=== PATIENT | male | born 1975 | race Caucasian/White ===

== ENCOUNTER 2016-09-12 17:03 | Emergency (ER) | payer OTHER ==
[2016-09-12 17:28] VITALS: BP 114/72
[2016-09-12] MEDS ORDERED: Ketorolac 60 MG/2 ML SDV IM ONE (17:38)
--- NOTE | 2016-09-12 17:42 | EDM.PDOC ---
ED HPI GENERAL MEDICAL PROBLEM - General Chief Complaint: General Stated Complaint: FLU SYPMTOMS Time Seen by Provider: 09/12/16 17:31 Source of Information: Reports: Patient, RN notes reviewed History Limitations: Reports: No limitations - History of Present Illness INITIAL COMMENTS - FREE TEXT/NARRATIVE: 40-year-old gentleman presents to the emergency department with a complaint of fevers and cough for the last 3 days, he did receive a flu shot this year denies shortness of breath or chest pain noted GI symptomatologies - Related Data Allergies Allergy/AdvReac Type Severity Reaction Status Date / Time No Known Allergies Allergy Verified 01/01/16 14:49 Home Meds: Home Meds Cholecalciferol (Vitamin D3) [Vitamin D3] 2,000 unit PO DAILY 01/01/16 [History] Sertraline HCl [Sertraline HCl] 09/12/16 [History] Past Medical History Psychiatric History: Reports: ADHD, Anxiety, Depression - Infectious Disease History Infectious Disease History: Reports: Chicken pox Social & Family History - Tobacco Use Smoking Status *Q: Current Every Day Smoker Years of Tobacco use: 20 Packs/Tins Daily: 0.5 Used Tobacco, but Quit: No - Alcohol Use Days Per Week of Alcohol Use: 0 - Recreational Drug Use Recreational Drug Use: No ED ROS GENERAL - Review of Systems Review Of Systems: See Below Constitutional: Reports: fever, chills HEENT: Reports: No symptoms Respiratory: Reports: cough. Denies: shortness of breath Cardiovascular: Reports: No symptoms GI/Abdominal: Reports: No symptoms : Reports: no symptoms ED EXAM, GENERAL - Physical Exam Exam: See Below Free Text/Narrative:: General: male, not in any distress, alert and oriented x3 HEENT: head is atraumatic normocephalic, eyes pupils equal round reactive to light and accommodation sclera clear no conjunctivitis appreciated. Ears tympanic membranes clear and vidal landmarks and light reflex are present bilaterally canals are clear. Nose no septal deviation, nares are clear, no blood present. Mouth mucosa is moist and pink no erythema or exudate noted in soft palate, tongue is midline uvula is midline, dentition is intact. Neck: Supple no thyromegaly no tracheal deviation. Nodes: Cervical nodes subclavicular nodes nontender no palpable lymphadenopathy noted. Lungs: clear to auscultation bilaterally with symmetrical respirations, no adventitious noise appreciated. CV: Regular rate and rhythm S1 and S2 appreciated no murmurs rubs or gallops noted. Abdomen: Soft, nontender, no palpable masses or organomegaly appreciated, no distention no guarding bowel sounds are present, . Course - Vital Signs Last Recorded V/S: Last Vital Signs Temp 99.3 F 09/12/16 17:26 Pulse 83 09/12/16 17:26 Resp 14 09/12/16 17:26 BP 114/72 09/12/16 17:26 Pulse Ox 94 L 09/12/16 17:26 - Orders/Labs/Meds Orders: Active Orders 24 hr Category Date Time Status Ketorolac [Toradol] Med 09/12/16 17:38 Once 60 mg IM ONETIME ONE Medication Orders Ketorolac Tromethamine (Toradol) 60 mg IM ONETIME ONE Stop: 09/12/16 17:39 Meds: Medications Generic Name Dose Route Start Last Admin Trade Name Freq PRN Reason Stop Dose Admin Ketorolac Tromethamine 60 mg 09/12/16 17:38 Toradol IM 09/12/16 17:39 ONETIME ONE Departure - Departure Time of Disposition: 17:41 Disposition: Home, Self-Care 01 Condition: good Clinical Impression: Cough Forms: ED Department Discharge Additional Instructions: continue to use symptomatic treatment as needed Please followup with your primary care provider in 3-5 days if not better, please call return to the emergency department with worsening of symptoms. - My Orders Last 24 Hours: My Active Orders 09/12/16 17:38 Ketorolac [Toradol] 60 mg IM ONETIME ONE - Assessment/Plan Last 24 Hours: My Active Orders 09/12/16 17:38 Ketorolac [Toradol] 60 mg IM ONETIME ONE Plan: Assessment Acuity = acute Site and laterality = cough Etiology = probable flu Manifestations = none Location of injury = home Lab values = none Plan I did discuss with him options including bloodwork and chest x-ray evaluation he is outside the limits Tamiflu he elected to try a dose of Toradol for bodyaches and headache and then continue to treat his symptoms as needed, him follow up with primary care 3-5 days if no improvement Patient was in agreement with the plan all questions were answered, they were instructed to return to the emergency department or call for worsening symptoms. This note was dictated using [employer] voice recognition software please call with any questions.
== END 2016-09-12 17:47 | disposition home or self-care (01) ==
LOC: JP.ED 17:03
DX: R05 Cough (principal); F17.210 Nicotine dependence, cigarettes, uncomplicated; F41.9 Anxiety disorder, unspecified; F32.9 Major depressive disorder, single episode, unspecified
CPT/HCPCS: 96372; 99283; J1885

== ENCOUNTER 2017-02-14 08:22 | Emergency (ER) | payer OTHER ==
[2017-02-14 08:34] VITALS: BP 144/86
[2017-02-14] MEDS ORDERED: Ketorolac 60 MG/2 ML SDV IM ONE (08:48)
--- NOTE | 2017-02-14 08:53 | EDM.PDOC ---
ED HPI GENERAL MEDICAL PROBLEM - General Chief Complaint: Chest Pain Stated Complaint: FELL HIT RIB AREA Time Seen by Provider: 02/14/17 08:48 Source of Information: Reports: Patient, Family, RN Notes Reviewed History Limitations: Reports: No Limitations - History of Present Illness INITIAL COMMENTS - FREE TEXT/NARRATIVE: 41-year-old gentleman presents emergency department day complaint of pain to his left anterior chest area this happened when he slipped and fell and landed on the tongue of his boat trailer Chest Pain Score (Numeric/FACES): 8 - Related Data Allergies Allergy/AdvReac Type Severity Reaction Status Date / Time No Known Allergies Allergy Verified 02/14/17 08:44 Home Meds: Home Meds Cholecalciferol (Vitamin D3) [Vitamin D3] 2,000 unit PO DAILY 01/01/16 [History] Sertraline HCl [Sertraline HCl] 1 tab PO DAILY 09/12/16 [History] Past Medical History Psychiatric History: Reports: ADHD, Anxiety, Depression - Infectious Disease History Infectious Disease History: Reports: Chicken Pox - Past Surgical History HEENT Surgical History: Reports: NEHEMIAS Social & Family History - Tobacco Use Smoking Status *Q: Light Tobacco Smoker Years of Tobacco use: 25 Packs/Tins Daily: 0.5 Used Tobacco, but Quit: No - Alcohol Use Days Per Week of Alcohol Use: 0 - Recreational Drug Use Recreational Drug Use: No ED ROS GENERAL - Review of Systems Review Of Systems: See Below Constitutional: Reports: No Symptoms HEENT: Reports: No Symptoms Respiratory: Reports: Shortness of Breath Cardiovascular: Reports: Chest Pain GI/Abdominal: Reports: No Symptoms : Reports: No Symptoms ED EXAM, UPPER BACK/NECK PAIN - Physical Exam Exam: See Below Exam Limited By: No Limitations General Appearance: Alert, Mild Distress Neck Exam: Non-Tender, Full Range of Motion, Normal Alignment, Normal Inspection Cardiovascular/Respiratory: Regular Rate, Rhythm, No M/R/G, Normal Breath Sounds , No Respiratory Distress, Other (Chest wall tenderness to palpation anterior chest T8 to T12 region) Course - Vital Signs Last Recorded V/S: Last Vital Signs Temp 95.7 F 02/14/17 08:43 Pulse 67 02/14/17 08:43 Resp 16 02/14/17 08:43 BP 144/86 H 02/14/17 08:43 Pulse Ox 99 02/14/17 08:43 - Orders/Labs/Meds Orders: Active Orders 24 hr Category Date Time Status Chest 2V [CR] Urgent Exams 02/14/17 08:51 Taken Meds: Medications Discontinued Medications Generic Name Dose Route Start Last Admin Trade Name Ramos PRN Reason Stop Dose Admin Ketorolac Tromethamine 60 mg 02/14/17 08:48 02/14/17 08:53 Toradol IM 02/14/17 08:49 60 mg ONETIME ONE Administration Departure - Departure Time of Disposition: 09:18 Disposition: Home, Self-Care 01 Condition: Good Clinical Impression: Rib fracture Qualifiers: Encounter type: initial encounter Rib fracture type: single rib Fracture type: closed Laterality: left Qualified Code(s): S22.32XA - Fracture of one rib, left side, initial encounter for closed fracture - Discharge Information Forms: ED Department Discharge Additional Instructions: Continue to use Aleve as needed for baseline pain control, use the hydrocodone as needed for breakthrough pain, Please followup with your primary care provider in 3-5 days if not better, please call return to the emergency department with worsening of symptoms. - My Orders Last 24 Hours: My Active Orders 02/14/17 08:51 Chest 2V [CR] Urgent - Assessment/Plan Last 24 Hours: My Active Orders 02/14/17 08:51 Chest 2V [CR] Urgent Plan: Assessment Acuity = acute Site and laterality = rib fracture left side Etiology = secondary to trauma Manifestations = pain] Location of injury = Home Lab values = x-ray shows rib fracture left side official read radiology is pending Plan Hydrocodone for pain control total #20 follow-up with primary care in 3-5 days if no improvement Patient was in agreement with the plan all questions were answered, they were instructed to return to the emergency department or call for worsening symptoms. This note was dictated using [employer] voice recognition software please call with any questions.
--- NOTE | 2017-02-15 10:00 | CR ---
Chest 2V INDICATION: fall, pain COMPARISON: None FINDINGS: Two views. Heart size normal. Lungs are clear. No infiltrate or pleural effusion. No si gns of pulmonary edema. Minimal rib deformities bilaterally but no acute fractures seen. IMPRESSION: Nothing acute.
== END 2017-02-14 09:35 | disposition home or self-care (01) ==
LOC: JP.ED 08:22
DX: S22.32XA Fracture of one rib, left side, initial encounter for closed fracture (principal); F17.210 Nicotine dependence, cigarettes, uncomplicated; Z98.890 Other specified postprocedural states; Z79.899 Other long term (current) drug therapy; F90.9 Attention-deficit hyperactivity disorder, unspecified type; F41.9 Anxiety disorder, unspecified; F32.9 Major depressive disorder, single episode, unspecified; W01.198A Fall on same level from slipping, tripping and stumbling with subsequent striking against other object, initial encounter
CPT/HCPCS: 71020; 96372; 99283; 99285; J1885

== ENCOUNTER 2017-02-18 14:09 | Emergency (ER) | payer OTHER ==
[2017-02-18 14:20] VITALS: BP 117/69
[2017-02-18] MEDS ORDERED: Bacitracin Oint 1 GM U/D Packet TOP ONE (14:33)
[2017-02-18] MEDS ORDERED: Lidocaine 1% with EPINEPHrine 1:100,000 50 ML MDV SUBCUT STA (14:33)
--- NOTE | 2017-02-18 14:54 | EDM.PDOC ---
ED HPI GENERAL MEDICAL PROBLEM - General Chief Complaint: Laceration Stated Complaint: LEFT THUMB LACERATION Time Seen by Provider: 02/18/17 14:34 Source of Information: Reports: Patient, RN Notes Reviewed History Limitations: Reports: No Limitations - History of Present Illness INITIAL COMMENTS - FREE TEXT/NARRATIVE: 41-year-old gentleman presents emergency department day following a laceration to his left hand he did this with the knife, he has no functional complaints bleeding is controlled upon arrival Left Hand Pain Score (Numeric/FACES): 1 - Related Data Allergies Allergy/AdvReac Type Severity Reaction Status Date / Time No Known Allergies Allergy Verified 02/18/17 14:23 Home Meds: Home Meds Cholecalciferol (Vitamin D3) [Vitamin D3] 2,000 unit PO DAILY 01/01/16 [History] Sertraline HCl [Sertraline HCl] 1 tab PO DAILY 09/12/16 [History] Past Medical History Psychiatric History: Reports: ADHD, Anxiety, Depression - Infectious Disease History Infectious Disease History: Reports: Chicken Pox - Past Surgical History HEENT Surgical History: Reports: MIAIK Social & Family History - Tobacco Use Smoking Status *Q: Current Every Day Smoker Years of Tobacco use: 22 Packs/Tins Daily: 0.5 Used Tobacco, but Quit: No Second Hand Smoke Exposure: Yes - Caffeine Use Caffeine Use: Reports: Coffee, Energy Drinks, Soda - Alcohol Use Days Per Week of Alcohol Use: 0 - Recreational Drug Use Recreational Drug Use: No ED ROS GENERAL - Review of Systems Review Of Systems: See Below Musculoskeletal: Reports: No Symptoms Skin: Reports: Wound Neurological: Reports: No Symptoms ED EXAM, SKIN/RASH Exam: See Below Exam Limited By: No Limitations General Appearance: Alert, WD/WN, No Apparent Distress Front/Back Body Diagram: 1 - 1.5 cm laceration completely through the dermis into the subcutaneous tissue webbing between digits 1 and 2, no functional complaints full range of motion of all digits radial pulses 2+ sensation is intact ED SKIN PROCEDURES - Laceration/Wound Repair Hand Lac/Wound length In cm: 1.5 Appearance: Subcutaneous, Linear Distal NVT: Neuro & Vascular Intact, No Tendon Injury Anesthetic Type: Local Local Anesthesia - Lidocaine (Xylocaine): 1% with EPI Local Anesthetic Volume: 2cc Skin Prep: Chlorhexidine (Hibiciens), Saline Saline Irrigation (cc's): 50 Exploration/Debridement/Repair: Wound Explored, In a Bloodless Field, Explored to Base Closed with: Sutures Suture Size: 3-0 # of Sutures: 3 Suture Type: Interrupted Sterile Dressing Applied: Nurse Tetanus Status Addressed: Yes (5 years ago in [place]) Complications: No Course - Vital Signs Last Recorded V/S: Last Vital Signs Temp 95.2 F L 02/18/17 14:28 Pulse 63 02/18/17 14:28 Resp 16 02/18/17 14:28 BP 117/69 02/18/17 14:28 Pulse Ox 100 02/18/17 14:28 - Orders/Labs/Meds Meds: Medications Discontinued Medications Generic Name Dose Route Start Last Admin Trade Name Ramos PRN Reason Stop Dose Admin Bacitracin 1 dose 02/18/17 14:33 Bacitracin Oint 1 Gm TOP 02/18/17 14:34 ONETIME ONE Lidocaine/Epinephrine 20 ml 02/18/17 14:33 Xylocaine 1% With Epinephrine 1:100,000 SUBCUT 02/18/17 14:34 NOW STA Departure - Departure Time of Disposition: 14:54 Disposition: Home, Self-Care 01 Condition: Good Clinical Impression: Laceration of left hand Qualifiers: Encounter type: initial encounter Foreign body presence: without foreign body Qualified Code(s): S61.412A - Laceration without foreign body of left hand, initial encounter - Discharge Information Forms: ED Department Discharge Additional Instructions: Suture removal in 10 days, follow wound care instruction sheet, follow with primary care for suture removal - Assessment/Plan Plan: Assessment Acuity = acute Site and laterality = 1.5 cm laceration left hand into the subcutaneous tissue Etiology = secondary trauma with a knife Manifestations = none Location of injury = Home Lab values = none Plan Suture removal in 10 days, follow up with primary care, follow wound care instruction sheet Patient was in agreement with the plan all questions were answered, they were instructed to return to the emergency department or call for worsening symptoms. This note was dictated using [employer] voice recognition software please call with any questions.
== END 2017-02-18 15:01 | disposition home or self-care (01) ==
LOC: JP.ED 14:09
DX: S61.412A Laceration without foreign body of left hand, initial encounter (principal); F41.9 Anxiety disorder, unspecified; F32.9 Major depressive disorder, single episode, unspecified; F17.210 Nicotine dependence, cigarettes, uncomplicated; Z79.899 Other long term (current) drug therapy; W26.0XXA Contact with knife, initial encounter
CPT/HCPCS: 12001; 99282-25; 99283-25

== ENCOUNTER 2021-11-17 06:24 | Day surgery (SDC) | payer OTHER ==
[2021-11-17] MEDS ORDERED: Propofol 200 MG/20 ML SDV ONE (06:59)
[2021-11-17] MEDS ORDERED: Midazolam 1 MG/ML 2 ML SDV ONE (06:59)
[2021-11-17] MEDS ORDERED: fentaNYL 100 MCG/2 ML SDV ONE (06:59)
[2021-11-17] MEDS ORDERED: Lactated Ringers 1,000 ML IV SCH (07:00)
[2021-11-17 08:40] VITALS: PULSE 65
[2021-11-17 08:55] VITALS: BP 130/76
== END 2021-11-17 09:15 | disposition home or self-care (01) ==
LOC: JP.SDS 06:24
PROVIDERS: ATTEND Surgery
DX: Z12.11 Encounter for screening for malignant neoplasm of colon (principal); F17.200 Nicotine dependence, unspecified, uncomplicated
CPT/HCPCS: J2250; J2704; J3010; J7120

== ENCOUNTER 2024-09-17 19:17 | Emergency (ER) | payer OTHER ==
[2024-09-17 19:39] VITALS: BP 131/75; PULSE 75
[2024-09-17] MEDS: Ketorolac 30 MG/ML SDV IM ONE (20:15)
[2024-09-17] MEDS: Lidocaine 2% 5 ML SDV INJECT ONE (22:05)
[2024-09-17] MEDS: Lidocaine 2% 20 ML MDV SUBCUT ONE (22:05)
== END 2024-09-17 22:16 | disposition home or self-care (01) ==
LOC: JP.ED 19:17
DX: G44.209 Tension-type headache, unspecified, not intractable (principal); F17.210 Nicotine dependence, cigarettes, uncomplicated
CPT/HCPCS: 70450; 96372; 99284; J1885; J2003